=== PATIENT | female | born 1935 | race Caucasian/White ===

== ENCOUNTER → 2017-12-23 | Outpatient (CLI) | payer OTHER, SELFPAY ==
[~2017-12-23] MED LIST: ACET325 PO; Hair, Skin & N1 EACH PO; LOSA25 PO; METO50ER PO; PANT40 PO; SIMV10 PO; WARF5 PO
== END | disposition home or self-care (01) ==
LOC: LAB SHORT 18:01 → LAB 18:01
DX: L25.9 Unspecified contact dermatitis, unspecified cause (principal)
CPT/HCPCS: 87070; 87205

== ENCOUNTER 2018-07-21 11:41 | Emergency (ER) | payer OTHER ==
[~2018-07-21] VITALS: Ht 165.1 cm; Wt 124.7 kg
[2018-07-21 12:24] LABS: BASOPHILS ABSOLUTE AUTO 0.07 K/mm3 (0.00-0.23); BASOPHILS PERCENT AUTO 1 % (0-2); EOSINOPHILS ABSOLUTE AUTO 0.27 K/mm3 (0.00-0.68); EOSINOPHILS PERCENT AUTO 4 % (0-6); Hematocrit 46.2 % (33.0-51.0); Hemoglobin 15.1 g/dL (11.5-16.0); IMMATURE GRAN ABSOLUTE AUTO 0.03 K/mm3 (0.00-0.10); IMMATURE GRAN PERCENT AUTO 0 % (0-1); LYMPHOCYTES ABSOLUTE AUTO 2.28 K/mm3 (0.84-5.20); LYMPHOCYTES PERCENT AUTO 32 % (21-46); MONOCYTES ABSOLUTE AUTO 0.59 K/mm3 (0.16-1.47); MONOCYTES PERCENT AUTO 8 % (4-13); Mean Corpuscular HGB 29.1 pg (26.0-34.0); Mean Corpuscular HGB Conc 32.7 g/dL (31.5-36.5); Mean Corpuscular Volume 89 fL (80-100); NEUTROPHILS ABSOLUTE AUTO 3.97 K/mm3 (1.96-9.15); NEUTROPHILS PERCENT AUTO 55 % (41-73); Platelet Count 246 K/mm3 (150-400); RDW Coefficient Variation 14.6 % (11.7-14.2); RDW Standard Deviation 47.2 fL (35.1-46.3); Red Blood Cell Count 5.19 M/mm3 (3.80-5.20); White Blood Cell Count 7.21 K/mm3 (4.00-11.30)
[2018-07-21 12:45] LABS: Alanine Aminotransfer (ALT/SGP 23 U/L (12-78); Albumin, Blood 3.5 g/dL (3.4-5.0); Albumin/Globulin Ratio 0.9 (0.8-1.8); Alk Phos 77 U/L (50-136); Anion Gap 7 mmol/L (6-16); Aspartate Aminotrans (AST/SGOT 17 U/L (12-37); Bilirubin, Total 0.5 mg/dL (0.1-1.0); Blood Urea Nitrogen 11 mg/dL (8-24); Bun/Creatinine Ratio 14.2 (12.0-20.0); CO2, Blood 25 mmol/L (21-32); Calcium, Blood 8.8 mg/dL (8.5-10.1); Chloride, Blood 108 mmol/L (98-108); Creatinine, Blood 0.78 mg/dL (0.40-1.00); Glomerular Filtration Rate >60 (60-); Glucose, Blood 108 mg/dL (70-99); Potassium, Blood 4.4 mmol/L (3.5-5.5); Sodium, Blood 140 mmol/L (136-145); Total Protein, Blood 7.5 g/dL (6.4-8.2); Troponin I <0.015 ng/mL (0.000-0.040)
[2018-07-21 14:19] LABS: Source, Urine Clean Catch
[2018-07-21 14:24] LABS: Bilirubin, Urine Neg (Neg); Blood, Urine 1+ (Neg); Glucose Qualitative, Urine Neg (Neg); Ketones, Urine Neg (Neg); Leukocyte Esterase, Urine 1+ (Neg); Nitrite, Urine Neg (Neg); Protein, Urine Neg (Neg); Urobilinogen, Urine NORM (Normal)
[2018-07-21 14:37] LABS: Appearance, Urine Clear (Clear); Color, Urine Yellow (P-Yellow)
[2018-07-21 14:40] LABS: Bacteria Rare /hpf; Red Blood Cells, Urine Not Seen /hpf (0-2)
[2018-07-21 14:41] LABS: Squamous Epithelial Cells Rare /hpf (Few)
[2018-07-21] MEDS ORDERED: ELIQUIS2.5 MG PO (14:53)
== END 2018-07-21 15:50 | disposition home or self-care (01) ==
LOC: ER 11:41
PROVIDERS: Emergency Medicine
DX: F41.9 Anxiety disorder, unspecified (principal); Z88.5 Allergy status to narcotic agent; Z79.899 Other long term (current) drug therapy
CPT/HCPCS: 36415; 71046; 80053; 81001; 84484; 85025; 87086; 93005; 93010; 99284-25

== ENCOUNTER 2019-03-08 09:56 | Day surgery (SDC) | payer OTHER ==
[~2019-03-08] VITALS: Ht 165.1 cm; Wt 124.7 kg
[~2019-03-08 09:56] MED LIST changes: +ELIQUIS2.5 MG PO
--- NOTE | 2019-03-08 11:06 | NUR ---
History, Chart, Medications and Allergies reviewed before start of procedure. Patient states colon prep results clear. Patient States Post-Procedure ride home has been arranged. Lungs clear T/O to Auscultation.
--- NOTE | 2019-03-08 11:55 | NUR ---
PT TO STEP. C/O OF SOME ABD CRAMPING. ADVISED TO PT PASS AIR SHE IS ABLE. NO NAUSEA.
--- NOTE | 2019-03-08 11:59 | NUR ---
REPORT TO KIRSTEN BRUSH RN.
--- NOTE | 2019-03-08 12:28 | NUR ---
Discharge instructions reviewed with patient. Patient verbalizes understanding. Copy given to patient to take home.
--- NOTE | 2019-03-08 12:33 | NUR ---
Discharged via wheelchair to private car for ride home.
--- NOTE | 2019-03-09 08:37 | NUR ---
03/09/19 0837 Toni Lozada 3-LEAD EKG REVIEWED WITH PHYSICIAN PRIOR TO START OF PROCEDURE.Patient to ENDO 1History, Chart, Medications and Allergies reviewed before start of procedure.O2 VIA N/C INTACT THROUGHOUT SEDATION/PROCEDURE. See Anesthesia record
== END 2019-03-08 12:35 | disposition home or self-care (01) ==
LOC: ORSCMMR 09:56 → ORD 11:00 → ORSCMMR 11:00
PROVIDERS: Internal Medicine Gastroenterology
PROC: 0DJD8ZZ Inspection of Lower Intestinal Tract, Via Natural or Artificial Opening Endoscopic (ICD-10-PCS; principal; 2019-03-08 11:00)
DX: Z12.11 Encounter for screening for malignant neoplasm of colon (principal); Z86.010 Personal history of colon polyps; K64.8 Other hemorrhoids; Z95.0 Presence of cardiac pacemaker; I10 Essential (primary) hypertension; E66.01 Morbid (severe) obesity due to excess calories; Z68.42 Body mass index [BMI] 45.0-49.9, adult; Z79.899 Other long term (current) drug therapy
CPT/HCPCS: J2405; J2704; J7120

== ENCOUNTER 2019-10-26 08:08 | Day surgery (SDC) | payer OTHER ==
[~2019-10-26] VITALS: Ht 165.1 cm; Wt 126.8 kg
--- NOTE | 2019-10-26 11:06 | NUR ---
"DAY SURGERY RN | TO OR BOTH DOCTORS AND CURING PRESS MAINTAINER RN HAVE SEEN PATIENT. ALL INTERVENTIONS DONE. REPORT TO JUAN CARLOS LESLIE. TO OR."
--- NOTE | 2019-10-26 15:03 | NUR ---
GAVE REPORT TO CRIS LESLIE.
== END 2019-10-26 22:45 | disposition home or self-care (01) ==
LOC: RAD 08:08 → ORSCMMR 08:08 → NM 09:30 → RAD 22:45
PROVIDERS: Surgery
PROC: 0HBT0ZZ Excision of Right Breast, Open Approach (ICD-10-PCS; principal; 2019-10-26 10:30)
PROC: 07B50ZX Excision of Right Axillary Lymphatic, Open Approach, Diagnostic (ICD-10-PCS; principal; 2019-10-26 10:30)
DX: C50.411 Malignant neoplasm of upper-outer quadrant of right female breast (principal); Z17.0 Estrogen receptor positive status [ER+]; D36.0 Benign neoplasm of lymph nodes; I10 Essential (primary) hypertension; E78.5 Hyperlipidemia, unspecified; K21.9 Gastro-esophageal reflux disease without esophagitis; E66.01 Morbid (severe) obesity due to excess calories; Z68.42 Body mass index [BMI] 45.0-49.9, adult; Z79.899 Other long term (current) drug therapy; Z86.711 Personal history of pulmonary embolism; Z79.01 Long term (current) use of anticoagulants
CPT/HCPCS: 19285; 38792; 76098; 77065; 88304; 88305; 88307; 88342; A9270-GY; A9520; J0690; J1100; J1580; J2405; J2704; J3010; J7120; Q9968

== ENCOUNTER → 2020-02-09 | Outpatient (CLI) | payer OTHER | END | disposition home or self-care (01) | LOC: LAB SHORT 18:11 → LAB 18:11 | DX: R31.9 Hematuria, unspecified (principal) | CPT/HCPCS: 87086 ==

== ENCOUNTER 2021-04-15 13:00 | Emergency (ER) | payer OTHER, SELFPAY ==
[~2021-04-15] VITALS: Ht 165.1 cm; Wt 127.0 kg
[2021-04-15 13:56] LABS: BASOPHILS ABSOLUTE AUTO 0.07 K/mm3 (0.00-0.23); BASOPHILS PERCENT AUTO 1 % (0-2); EOSINOPHILS ABSOLUTE AUTO 0.34 K/mm3 (0.00-0.68); EOSINOPHILS PERCENT AUTO 5 % (0-6); Hematocrit 47.8 % (33.0-51.0); Hemoglobin 15.5 g/dL (11.5-16.0); IMMATURE GRAN ABSOLUTE AUTO 0.03 K/mm3 (0.00-0.10); IMMATURE GRAN PERCENT AUTO 0 % (0-1); LYMPHOCYTES ABSOLUTE AUTO 2.24 K/mm3 (0.84-5.20); LYMPHOCYTES PERCENT AUTO 32 % (21-46); MONOCYTES ABSOLUTE AUTO 0.46 K/mm3 (0.16-1.47); MONOCYTES PERCENT AUTO 7 % (4-13); Mean Corpuscular HGB Conc 32.4 g/dL (31.5-36.5); Mean Corpuscular Volume 89 fL (80-100); NEUTROPHILS ABSOLUTE AUTO 3.93 K/mm3 (1.96-9.15); NEUTROPHILS PERCENT AUTO 56 % (41-73); Platelet Count 234 K/mm3 (150-400); RDW Coefficient Variation 14.6 % (11.7-14.2); RDW Standard Deviation 47.6 fL (35.1-46.3); Red Blood Cell Count 5.35 M/mm3 (3.80-5.20); White Blood Cell Count 7.07 K/mm3 (4.00-11.30)
[2021-04-15 14:11] LABS: Alanine Aminotransfer (ALT/SGP 22 U/L (12-78); Albumin, Blood 3.7 g/dL (3.4-5.0); Albumin/Globulin Ratio 0.9 (0.8-1.8); Alk Phos 88 U/L (50-136); Anion Gap 5 mmol/L (6-16); Aspartate Aminotrans (AST/SGOT 21 U/L (12-37); Bilirubin, Total 0.4 mg/dL (0.1-1.0); Blood Urea Nitrogen 10 mg/dL (8-24); Bun/Creatinine Ratio 10.8 (12.0-20.0); CO2, Blood 25 mmol/L (21-32); Calcium, Blood 9.7 mg/dL (8.5-10.1); Chloride, Blood 108 mmol/L (98-108); Creatinine, Blood 0.93 mg/dL (0.40-1.00); Globulin, Blood 3.9 g/dL (2.2-4.0); Glomerular Filtration Rate >60 (60-); Glucose, Blood 111 mg/dL (70-99); Potassium, Blood 4.5 mmol/L (3.5-5.5); Sodium, Blood 138 mmol/L (136-145); Total Protein, Blood 7.6 g/dL (6.4-8.2)
[2021-04-15] MEDS ORDERED: Voltaren100 GM TOP (16:00)
[2021-04-15] MEDS ORDERED: OXAYDO5 M1 PO (16:00)
== END 2021-04-15 16:19 | disposition home or self-care (01) ==
LOC: ER 13:00
PROVIDERS: Physician Assistant
DX: I82.441 Acute embolism and thrombosis of right tibial vein (principal); M71.21 Synovial cyst of popliteal space [Baker], right knee; Z79.01 Long term (current) use of anticoagulants; Z79.899 Other long term (current) drug therapy
CPT/HCPCS: 36415; 80053; 83880; 85025; 93971; 99284-25

== ENCOUNTER 2021-10-21 06:20 | Day surgery (SDC) | payer OTHER ==
[~2021-10-21] VITALS: Ht 165 cm; Wt 130.0 kg
[~2021-10-21 06:20] MED LIST changes: +OXAYDO5 M1 PO; +Voltaren100 GM TOP
--- NOTE | 2021-10-21 10:08 | NUR ---
PT BACK TO RECOVERY ROOM VIA CRISSY POST PROCEDURE. AWAKE AND ALERT, DENIES PAIN OR DISCOMFORT. CALL LIGHT IN REACH. REPORT FROM MARIAMA SKINNER. ABHI RT, AT BEDSIDE TO REMOVE R JUGULAR SHEATH
--- NOTE | 2021-10-21 10:30 | NUR ---
R JUGULAR SITE SOFT AND NON-TENDER AFTER MANUAL PRESSURE TO SITE. PT CONTINUES TO DENY DISCOMFORT. DOZING INTERMITTENTLY.
--- NOTE | 2021-10-21 12:04 | NUR ---
PT SITTING UP IN BED, EATING LUNCH. DENIES PAIN OR NEEDS. CALL LIGHT IN REACH, VSS.
--- NOTE | 2021-10-21 12:54 | NUR ---
PT VERBALIZES UNDERSTANDING VERBAL INSTRUCTIONS. DENIES QUESTIONS OR CONCERNS. IV DC'D. CATH INTACT. PRESSURE DSG IN PLACE. NO BLEEDING NOTED TO L CHEST WALL SITE. PT DC TO HOME VIA SON BY JANY.
== END 2021-10-21 13:20 | disposition home or self-care (01) ==
LOC: MHTC 06:20
DX: Z45.010 Encounter for checking and testing of cardiac pacemaker pulse generator [battery] (principal); I42.0 Dilated cardiomyopathy; I10 Essential (primary) hypertension; E78.5 Hyperlipidemia, unspecified; E66.01 Morbid (severe) obesity due to excess calories; I26.99 Other pulmonary embolism without acute cor pulmonale; I77.819 Aortic ectasia, unspecified site; Z68.42 Body mass index [BMI] 45.0-49.9, adult; Z88.5 Allergy status to narcotic agent; Z79.01 Long term (current) use of anticoagulants
CPT/HCPCS: 33228; 76937; 99152; 99153; C1769; C1781; C1785; C1894; J0690; J1644; J2250; J3010; J7030; J7040; J7050

== ENCOUNTER → 2023-08-16 | Outpatient (CLI) | payer OTHER | LOC: LAB 18:22 → LAB SHORT 18:22 | DX: R32 Unspecified urinary incontinence (principal) | CPT/HCPCS: 87077; 87086; 87186 ==